=== PATIENT | female | born 2000 | race Caucasian/White ===

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

== ENCOUNTER 2018-09-05 19:00 | Emergency (ER) | payer MEDICAID ==
--- NOTE | 2018-09-05 19:28 | ED Physician Chart ---
ED Chief Complaint/HPI - Patient Information Date Seen:: 09/05/18 Time Seen:: 19:23 Chief Complaint:: Nausea, vomiting History of Present Illness:: 18 yo female, , 8 weeks , LMP 07/14/18, has been referred to [facility] [facility] , dizziness for 2 days vomited 10 times, morning sickness for 1 week, vomited mostly food content, eating food or drinking fluid would cause vomiting. 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 Allergies:: Allergies Allergy/AdvReac Type Severity Reaction Status Date / Time No Known Allergies Allergy Verified 09/05/18 19:14 Vitals:: Vital Signs - 8 hr 09/05/18 19:14 Temp 98.1 F HR 74 RR 18 BP 126/68 O2 Sat % 97 ED Review of Systems - Review of Systems General/Constitutional: No fever, Chills Skin: No rash Head: No headache, Light headed Eyes: No pain ENT: No nasal drainage Neck: No thyromegaly Cardio Vascular: No chest pain Pulmonary: No SOB GI: Nausea, Vomiting, No diarrhea G/U: No dysuria [employer]: Vaginal discharge, Other (Vaginal spotting) Musculoskeletal: Bone or joint pain Psychiatric: No prior psych history Neurological: Dizziness ED Past Medical History - Past Medical History Past Medical History: No significant medical hx Social History: Non Smoker, No Alcohol, No Drug Use Surgical History: other (Right humerus bone cyst removal 2013 ) Family Medical History - Family Member Mother History Unknown: Yes ED Physical Exam - Physical Examination General/Constitutional: Awake, Alert Head: Atraumatic Eyes: PERRL, EOMI Skin: No skin lesions ENMT: Nasal exam nl Other ENMT comments:: Maegan-Hallpike test negative Neck: No nuchal rigidity Respiratory: Clear to Auscultation, No Wheeze/Rhonchi/Rales Cardio Vascular: RRR, No murmur, gallop, rubs, NL S1 S2 GI: No tenderness/rebounding/guarding Extremities: No tenderness or effusion, normal strength in all extremities Neuro/Psych: Alert/oriented, No focal deficits ED Labs/Radiology/EKG Results - Lab Results Results: Laboratory Last Values WBC 7.0 Th/cmm (4.8-10.8) 09/05/18 19:48 RBC 4.71 Mil/cmm (3.80-5.10) 09/05/18 19:48 Hgb 14.4 gm/dL (12-16) 09/05/18 19:48 Hct 42.3 % (41.0-60) 09/05/18 19:48 MCV 89.8 fl (81-100) 09/05/18 19:48 MCH 30.5 pg (27.0-31.0) 09/05/18 19:48 MCHC Differential 34.0 pg (28.0-36.0) 09/05/18 19:48 RDW 11.6 % (11.5-20.0) 09/05/18 19:48 Plt Count 271 Th/cmm (150-400) 09/05/18 19:48 MPV 7.9 fl 09/05/18 19:48 Neutrophils % 76.9 % (40.0-80.0) 09/05/18 19:48 Lymphocytes % 14.5 % (20.0-50.0) L 09/05/18 19:48 Monocytes % 7.8 % (2.0-10.0) 09/05/18 19:48 Eosinophils % 0.3 % (0.0-5.0) 09/05/18 19:48 Basophils % 0.5 % (0.0-2.0) 09/05/18 19:48 Sodium 135 mEq/L (136-145) L 09/05/18 19:48 Potassium 3.6 mEq/L (3.5-5.1) 09/05/18 19:48 Chloride 99 mEq/L (98-107) 09/05/18 19:48 Carbon Dioxide 24.3 mEq/L (21.0-31.0) 09/05/18 19:48 Anion Gap 15.3 (7.0-16.0) 09/05/18 19:48 BUN 9 mg/dL (7-25) 09/05/18 19:48 Creatinine 0.7 mg/dL (0.6-1.2) 09/05/18 19:48 Est GFR ( Amer) > 60.0 ml/min (>90) 09/05/18 19:48 Est GFR (Non-Af Amer) > 60.0 ml/min 09/05/18 19:48 BUN/Creatinine Ratio 12.9 09/05/18 19:48 Glucose 95 mg/dL (70-105) 09/05/18 19:48 Calcium 9.9 mg/dL (8.6-10.3) 09/05/18 19:48 Total Bilirubin 0.7 mg/dL (0.3-1.0) 09/05/18 19:48 AST 16 U/L (13-39) 09/05/18 19:48 ALT 12 U/L (7-52) 09/05/18 19:48 Alkaline Phosphatase 44 U/L (34-104) 09/05/18 19:48 Total Protein 8.0 gm/dL (6.0-8.3) 09/05/18 19:48 Albumin 4.8 gm/dL (3.7-5.3) 09/05/18 19:48 Globulin 3.2 gm/dL 09/05/18 19:48 Albumin/Globulin Ratio 1.5 (1.0-1.8) 09/05/18 19:48 Beta HCG, Quant [id number] mIU/mL (0-0) H* 09/05/18 19:48 Urine Source RANDOM 09/05/18 19:09 Urine Color YELLOW 09/05/18 19:09 Urine Clarity HAZY (CLEAR) 09/05/18 19:09 Urine pH 6.0 (4.6 - 8.0) 09/05/18 19:09 Ur Specific [place] 1.020 (1.005-1.030) 09/05/18 19:09 Urine Protein TRACE mg/dL (NEGATIVE) 09/05/18 19:09 Urine Glucose (UA) NEGATIVE mg/dL (NEGATIVE) 09/05/18 19:09 Urine Ketones >=80 mg/dL (NEGATIVE) H 09/05/18 19:09 Urine Blood NEGATIVE (NEGATIVE) 09/05/18 19:09 Urine Nitrate NEGATIVE (NEGATIVE) 09/05/18 19:09 Urine Bilirubin SMALL (NEGATIVE) H 09/05/18 19:09 Urine Urobilinogen 0.2 E.U./dL (0.2 - 1.0) 09/05/18 19:09 Ur Leukocyte Esterase NEGATIVE (NEGATIVE) 09/05/18 19:09 Urine RBC 0-2 /hpf (0-5) 09/05/18 19:09 Urine WBC 2-5 /hpf (0-5) 09/05/18 19:09 Ur Epithelial Cells MODERATE /lpf (FEW) 09/05/18 19:09 Urine Bacteria 2+ /hpf (NONE SEEN) H 09/05/18 19:09 Urine Mucus FEW /lpf (FEW) 09/05/18 19:09 - Radiology Results Results: Early OB ultrasound: normal ED Assessment - Assessment General Assessment: Hyperemesis gravidarum First trimester gestation Assessment/Comments:: Reglan 10mg IV NS 1L IV bolus D/c home Reglan 5mg po q6h prn for N/V F/u [employer] or return to ER if symptoms worsen ED Septic Shock - . Is Septic Shock (SBP<90, OR Lactate>4 mmol\L) present?: No - <6hrs of presentation: Vital Signs: Vital Signs - 8 hr 09/05/18 19:14 Temp 98.1 F HR 74 RR 18 BP 126/68 O2 Sat % 97 ED Reassessment (Disposition) - Reassessment Reassessment Condition:: Improved - Aftercare/Follow up Instructions Medication Prescribed:: Reglan 5mg, po, q6h prn for N/V, #20 - Patient Disposition Discharge/Transfer:: Home
[2018-09-05 19:54] LABS: URINE SOURCE RANDOM
[2018-09-05 19:57] LABS: % BASOPHILS 0.5 % (0.0-2.0); % EOSINOPHILS 0.3 % (0.0-5.0); % LYMPHOCYTES 14.5 % (20.0-50.0); % MONOCYTES 7.8 % (2.0-10.0); % NEUTROPHILS 76.9 % (40.0-80.0); HEMATOCRIT 42.3 % (41.0-60); HEMOGLOBIN 14.4 gm/dL (12-16); MEAN CELL VOLUME 89.8 fl (81-100); MEAN CORPUSCULAR HEMOGLOBIN 30.5 pg (27.0-31.0); MEAN PLATELET VOLUME 7.9 fl; MONOCYTE ABSOLUTE 0.5 Th/cmm (0.3-1.0); NEUTROPHILE ABSOLUTE 5.5 Th/cmm (1.8-8.0); PLATELET COUNT 271 Th/cmm (150-400); RED BLOOD COUNT 4.71 Mil/cmm (3.80-5.10); RED CELL DISTRIBUTION WIDTH 11.6 % (11.5-20.0)
[2018-09-05 20:12] LABS: URINE CLARITY HAZY (CLEAR); URINE COLOR YELLOW; URINE GLUCOSE (UA) NEGATIVE (NEGATIVE); URINE MICROSCOPIC INDICATED? YES
[2018-09-05 20:13] LABS: URINE BILIRUBIN SMALL (NEGATIVE); URINE BLOOD NEGATIVE (NEGATIVE); URINE KETONE >=80 mg/dL (NEGATIVE); URINE LEUKOCYTE ESTERASE NEGATIVE (NEGATIVE); URINE NITRATE NEGATIVE (NEGATIVE); URINE PROTEIN TRACE mg/dL (NEGATIVE); URINE RBC 0-2 /hpf (0-5); URINE UROBILINOGEN 0.2 E.U./dL (0.2 - 1.0)
[2018-09-05 20:14] LABS: URINE BACTERIA 2+ /hpf (NONE SEEN); URINE EPITHELIAL CELLS MODERATE /lpf (FEW)
[2018-09-05 20:15] LABS: ALB/GLOB RATIO 1.5 (1.0-1.8); ALBUMIN 4.8 gm/dL (3.7-5.3); ALKALINE PHOSPHATASE 44 U/L (34-104); ANION GAP 15.3 (7.0-16.0); BILIRUBIN,TOTAL 0.7 mg/dL (0.3-1.0); BUN - UREA NITROGEN 9 mg/dL (7-25); CALCIUM SERUM 9.9 mg/dL (8.6-10.3); CARBON DIOXIDE 24.3 mEq/L (21.0-31.0); CHLORIDE 99 mEq/L (98-107); CREATININE - SERUM 0.7 mg/dL (0.6-1.2); GFR AFRICAN-AMERICAN > 60.0 ml/min (>90); GFR NON AFRICAN-AMERICAN > 60.0 ml/min; GLUCOSE 95 mg/dL (70-105); POTASSIUM SERUM 3.6 mEq/L (3.5-5.1); SGOT 16 U/L (13-39); SGPT/ALT 12 U/L (7-52); SODIUM SERUM 135 mEq/L (136-145)
[2018-09-05] MEDS ORDERED: Metoclopramide 5 mg/mL 2mL Vial IVP STA (20:21)
[2018-09-05] MEDS ORDERED: Sodium Chloride 0.9% 1,000 ML IV ONE (20:21)
[2018-09-05] MEDS ORDERED: Metoclopramide 5 mg/mL 2mL Vial ONE (20:31)
[2018-09-05 22:37] LABS: HCG QUANT 142027 mIU/mL (0-0)
--- NOTE | 2018-09-06 09:49 | Diagnostic Imaging Report ---
Ultrasound OB, less than 14 weeks HISTORY: Hyperemesis gravidarum COMPARISON: None Technique: Longitudinal and transverse sonographic sector images of the pelvis were obtained transabdominally only. Patient refused transvaginal study exam. FINDINGS: The uterus measures 8.7 x 4.6 x 8.3 cm. An intrauterine gestational sac is noted with yolk sac visualized. The gestational sac measures 2.4 x 3.5 x 1.1 cm corresponding to gestational age of 7 weeks and 3 days. The crown-rump length is identified measuring 0.72 cm corresponding gestational age of 6 weeks and 4 days. The heart rate is 125 bpm. There is suggestion of a tiny subchorionic hemorrhage. The right ovary measures 2.8 x 1.7 cm. The left ovary measures 2.5 x 2.4 cm. No free fluid identified. IMPRESSION: Limited exam as patient refused transvaginal images. Single live intrauterine gestation is seen with estimated gestational age of 6 weeks and 4 days +/-2 weeks based on crown-rump length. There is suggestion of a small subchorionic hemorrhage. As such, short-term follow-up ultrasound in 5-7 days is recommended for further assessment and to ensure viability. heart rate of 125 bpm. No evidence of free fluid in the pelvis.
== END 2018-09-05 21:55 | disposition home or self-care (01) ==
LOC: ER 19:00
DX: O21.0 Mild hyperemesis gravidarum (principal); R42 Dizziness and giddiness; Z3A.08 8 weeks gestation of pregnancy
CPT/HCPCS: 99285; 96374; 76801; 36415; 84702; 85025; 87086; 81001; 80053; J2765; J7030